=== PATIENT | female | born 1945 | race Caucasian/White ===

== ENCOUNTER 2021-09-03 15:28 | Emergency (ER) | payer MEDICARE, BC | END 2021-09-03 17:24 | disposition home or self-care (01) | LOC: JP.ED 15:28 | DX: S00.03XA Contusion of scalp, initial encounter (principal); S46.212S Strain of muscle, fascia and tendon of other parts of biceps, left arm, sequela; M25.512 Pain in left shoulder; Z88.0 Allergy status to penicillin; Z88.1 Allergy status to other antibiotic agents; Z48.89 Encounter for other specified surgical aftercare; W18.09XA Striking against other object with subsequent fall, initial encounter | CPT/HCPCS: 70450; 97010-GO; 97035-GO; 97140-GO; 99283 ==